=== PATIENT | male | born 1950 | race Caucasian/White ===

== ENCOUNTER 2018-05-28 09:36 | Outpatient (CLI) | payer MEDICARE, OTHER ==
[~2018-05-28] VITALS: Ht 177.8 cm; Wt 87.7 kg
--- NOTE | ~2018-05-28 | HEMODYNAMI ---
PATIENT:JUNIOR NEGRTEE MEDICAL RECORD: [id number] : 50 LOCATION:[facility] ADMISSION DATE: 05/28/18 Generatedon:05/28/201812:59 Patient name: JUNIOR NEGRETE Patient #: [id number] SSN: B: 1950 Date of study: 05/28/2018 Page: Of Hemodynamic Procedure Report Patient Data Patient Demographics Procedure consent was obtained First Name: JUNIOR Gender: Male Last Name: CADEN : 1950 Patient #: [id number] Age: 68 year(s) Race: Unknown Additional ID: [id number] Contact details Address: [facility] State: [place] City: [place] Zip code: [address] Past Medical History Allergies: No known allergies Admission Admission Data Admission Date: 05/28/2018 Admission Time: 9:36 Height (in.): 5.1 BSA: 0.31 (m2) Height (cm.): 12.95 BMI: 5243.96 (kg/m2) Weight (lbs.): 194 Weight (kg.): 88 Lab Results Lab Result Date: 05/28/2018 Lab Result Time: 0:00 Biochemistry Name Units Result Min Max BUN mg/dl 15 --(--*-)-- 7 18 Creatinine mg/dl 1.2 --(---*)-- 0.6 1.3 CBC Name Units Result Min Max Hemoglobin g/dl 15 --(-*--)-- 13.5 17.5 Procedure Procedure Types Cath Procedure Diagnostic Procedure LHC LH w/Coronaries PCI Procedure Coronary Stent Coronary Stent Initial Procedure Description Procedure Date Procedure Date: 05/28/2018 Procedure Start Time: 12:44 Procedure End Time: 12:55 Procedure Staff Name Function Anshul Mcbride MD Performing Physician Mendez Cisneros RT Monitor Shante Chamberlain RT Scrub Sofi Lawson RN Nurse Paulo Montalvo RT Flyer Maker Procedure Data Cath Procedure Fluoroscopy Diagnostic fluoroscopy Total fluoroscopy Time: 2.1 time: 2.1 min min Diagnostic fluoroscopy Total fluoroscopy dose: 246 dose: 246 mGy mGy Contrast Material Contrast Material Type Amount (ml) Isovue 300 49 Entry Location Entry Primary Successful Side Size Upsize Upsize Entry Closure Keys ccessful Closure Location (Fr) 1 (Fr) 2 (Fr) Remarks Device Remarks Radial Right 6 Fr Mechanical artery Short Compression Estimated blood loss: 10 ml Diagnostic catheters Device Type Used For End Catheter Placement DIAGNOSTIC [place] 110cm 5 Procedure Fr catheter ([id number]) Procedure Complications No complications Procedure Medications Medication Administration Route Dosage Oxygen etCO2 Nasal cannula 2 l/min Lidocaine 2% added to field 20 0.9% NaCl I.V. 100 ml/hr Heparin Flush Bag added to field 2 bags (1000units/500ml NS) Radial Cocktail I.A. 1 syringe (Verapomil 2mg/Nitro 400mcg/Heparin 1500units) Versed I.V. 1 mg Fentanyl I.V. 50 mcg Versed I.V. 1 mg Fentanyl I.V. 50 mcg Heparin Bolus I.V. 4000 units Versed I.V. 0.5 mg Hemodynamics Rest BSA: 0.31 (m2) HGB: 15 (g/dl) O2 Consumption: Estimated: 34.94 (ml/min) O2 Consu mption indexed: Estimated:112.71 (ml/min/m) Heart Rate: 61 (bpm) Pressure Samples Time Site Value (mmHg) Purpose Heart Use Rate(bpm) 12:46 LV 102/8,11 Snapshot 82 Snapshots Pre Cath Intra NCS Post Cath Vital Signs Time Heart Resp SPO2 etCO2 NIBP (mmHg) Rhythm Pain Sedation Rate (ipm) (%) (mmHg) Status Level (bpm) 12:22:01 62 25 97 0 158/80(119) NSR 0 (11) 10(A) , No pain 12:26:38 67 15 98 30.1 134/89(110) NSR 0 (11) 10(A) , No pain 12:31:20 66 15 97 32.3 132/80(102) NSR 0 (11) 10(A) , No pain 12:36:03 69 13 96 29.3 125/73(92) NSR 0 (11) 10(A) , No pain 12:40:43 67 13 96 34.6 121/76(95) NSR 0 (11) 10(A) , No pain 12:45:24 69 13 93 37.6 130/73(93) NSR 0 (11) 9(A) , No pain 12:49:58 77 13 95 28.6 108/77(99) NSR 0 (11) 9(A) , No pain 12:54:35 70 16 95 32.4 117/73(94) NSR 0 (11) 10(A) , No pain Medications Time Medication Route Dose Verified Delivered Reason Not es Effectiveness by by 12:25:04 Oxygen etCO2 2 l/min Anshul Buffie used for Nasal Reed Lawson RN procedure cannula 12:25:11 Lidocaine 2% added 20ml Anshulkerline Landers for local to vial Reed Mcbride MD anesthetic field 12:25:30 0.9% NaCl I.V. 100 Anshul Bufferiln Per physician ml/hr Reed Lawson RN 12:34:22 Heparin Flush added 2 bags Anshul Landers used for Bag to Reed Mcbride MD procedure (1000units/500ml field NS) 12:40:51 Versed I.V. 1 mg Anshul Morinie for sedation Reed Lawson RN 12:40:58 Fentanyl I.V. 50 mcg Anshul Farah for sedation Reed Lawson RN 12:45:17 Versed I.V. 1 mg Anshul Morinie for sedation Reed Lawson RN 12:45:21 Fentanyl I.V. 50 mcg Anshul Farah for sedation Reed Lawson RN 12:45:24 Radial Cocktail I.A. 1 Anshul Landers for (Verapomil syringe Reed Mcbride MD vasodilation 2mg/Nitro 400mcg/Heparin 1500units) 12:48:54 Heparin Bolus I.V. 4000 Anshul Buffie for kuldeep ified units Reed Lawson RN anticoagulation with dr mcbride 12:50:19 Versed I.V. 0.5 mg Anshul Farah for sedation Reed Lawson RN Procedure Log Time Note 12:07:35 Signed procedure consent form obtained from patient. 12:07:36 Time tracking: Regular hours (M-F 7:00 - 5:00) 12:07:39 Plan of Care:Hemodynamics will remain stable., Cardiac rhythm will remain stable., Comfort level will be maintained., Respiratory function will remain adequate., Patient/ family verbilizes understanding of procedure., Procedure tolerated without complication., Recovers from procedure without complications.. 12:07:53 Paulo Montalvo RT(R) sent for patient. Start room use. 12:07:59 H&P Date Dictated: 05/27/2018 Within 30 days and on chart., H&P Addendum completed by physician on day of procedure. (MUST COMPLETE FOR ALL OUTPATIENTS). 12:08:10 Patient allergic to No known allergies 12:10:08 Lab Result : BUN 15 mg/dl 12:10:08 Lab Result : Hemoglobin 15 g/dl 12:10:08 Lab Result : Creatinine 1.2 mg/dl 12:10:50 Patient Weight : 194 lbs 12:10:55 Patient Height : 5.1 inches 12:16:02 Patient received from Pre/Post Procedure Room to CCL 1 Alert and oriented. Tansferred to table in Supine position. 12:16:03 Warm blankets applied, and antony hugger turned on for patient comfort. 12:16:03 Correct patient and procedure confirmed by team. 12:16:04 ECG and BP/O2 sat monitors applied to patient. 12:16:05 Pre-procedure instructions explained to patient. 12:16:05 Pre-op teaching completed and patient verbalized understanding. 12:16:07 Family in waiting room. 12:16:09 Patient NPO since Midnight. 12:20:55 Vital chart was started 12:21:18 Rhythm: sinus rhythm 12:21:21 Full Disclosure recording started 12:21:26 Is the patient allergic to Iodine/contrast media? No. 12:21:27 Is patient on blood thinner?Yes 12:21:30 ACC The patient was administered the following blood thiners within the last 24 hours: ACCPlavix 12:21:32 Patient diabetic? No. 12:21:35 Previous problem with sedation/anesthesia? No ? 12:21:36 Snore? Yes 12:21:37 Sleep apnea? No 12:21:37 Deviated septum? No 12:21:42 Opens mouth fully? Yes 12:21:44 Sticks out tongue? Yes 12:21:46 Airway obstruction? No ? 12:21:47 Dentures? No ? 12:21:53 Pre procedure: right dorsailis pedis pulse 1+ Palpable, but thready & weak; easily obliterated 12:22:18 Modified Matheus's test Ulnar < 7 seconds 12:22:21 Patient pain scale 0/10 ?. 12:22:42 IV patent on arrival in left forearm with 0.9% NaCl at [facility]. 12:23:08 Lab results completed and on chart. 12:23:13 Right Radial & Right Groin area was prepped with chlora-prep and draped in sterile fashion 12:: Alarms reviewed by R. N. 12:: Sharps counted by scrub and verified by R.N. 12::33 Baseline sample Acquired. 12:25:04 Oxygen 2 l/min etCO2 Nasal cannula was administered by Sofi Lawson RN; used for procedure; 12:25:11 Lidocaine 2% 20ml vial added to field was administered by Anshul Mcbride MD; for local anesthetic; 12:25:30 0.9% NaCl 100 ml/hr I.V. was administered by Sofi Lawson RN; Per physician; 12:29:27 Use device set Radial Dx or PCI 12:29:29 ACIST Syringe (92496) opened to sterile field. 12:29:29 Medline Cath Pack ([id number]) opened to sterile field. 12:29:29 Bag Decanter (2002S) opened to sterile field. 12:29:30 ACIST Hand Control (46918) opened to sterile field. 12:29:31 ACIST Manifold (72226) opened to sterile field. 12:29:31 Tegaderm 4 x 4 (1626W) opened to sterile field. 12:29:32 MBrace Wrist Support ([id number]) opened to sterile field. 12:29:33 SHEATH 6Fr Prelude Radial ([id number]) opened to sterile field. 12:29:34 DIAGNOSTIC WIRE .035 260cm J wire (073731) opened to sterile field. 12:33:08 Physician paged 12:34:22 Heparin Flush Bag (1000units/500ml NS) 2 bags added to field was administered by Anshul Mcbride MD; used for procedure; 12:35:12 Zero performed for pressure channel P1 12:39:13 Physician arrived 12:39:13 --------ALL STOP TIME OUT------ 12:39:14 Final Timeout: patient, procedure, and site verified with staff and physician. All members of the team are in agreement. 12:39:17 Right Radial & Right Groin site verified by team. 12:39:19 Physical assessment completed. ASA score P 2 - A patient with mild systemic disease as per Anshul Mcbride MD. 12:39:22 Sedation plan: IV Moderate Sedation Medication:Versed, Fentanyl 12:40:51 Versed 1 mg I.V. was administered by Sofi Lawson RN; for sedation; 12::58 Fentanyl 50 mcg I.V. was administered by Sofi Lawson RN; for sedation; 12:43:58 Procedure started. 12:44:38 Local anesthetic to right radial artery with Lidocaine 2% by Anshul Mcbride MD.INITIAL ACCESS ONLY 12:44:48 A 6 Fr Short sheath was inserted into the Right Radial artery 12:45:17 Versed 1 mg I.V. was administered by Sofi Lawson RN; for sedation; 12:45:21 Fentanyl 50 mcg I.V. was administered by Sofi Lawson RN; for sedation; 12:45:22 A DIAGNOSTIC [place] 110cm 5 Fr catheter ([id number]) was advanced over the wire and used for Procedure. 12:45:24 Radial Cocktail (Verapomil 2mg/Nitro 400mcg/Heparin 1500units) 1 syringe I.A. was administered by Anshul Mcbride MD; for vasodilation; 12:46:13 LV gram done using MCKEON 12:46:16 Injector settings: Ml/sec: 5, Volume: 15, 12:46:22 EF : 55 % 12:46:36 LCA angiography performed. 12:47:16 RCA angiography performed. 12:47:21 Catheter removed. 12:48:31 CHOICE PT Extra Support 182cm wire ([id number]) opened to sterile field. 12:48:32 INFLATOR Merit BasixCompak (CZ7661) opened to sterile field. 12:48:32 GUIDE 6FR HS I SH catheter ([id number]) opened to sterile field. 12:48:54 Heparin Bolus 4000 units I.V. was administered by Sofi Lawson RN; for anticoagulation; verified with dr mcbride 12:48:55 6 Fr HSI SH guide catheter was inserted over the wire 12:49:25 CHOICE PT ES wire advanced. 12:49:26 Wire advanced across lesion. 12:50:19 Versed 0.5 mg I.V. was administered by Sofi Lawson RN; for sedation; 12:50:55 Place stent Inflation Number: 1 A CHUCKY RX 3.0 x 22 stent ([id number]) was prepped and advanced across the Mid RCA. The stent was deployed at 15 LEXI for 0:10 (min:sec). 12:51:09 Stent catheter was removed intact over wire. 12:51:10 Wire removed. 12:52:12 TR BAND Standard ([id number]) opened to sterile field. 12:52:18 Guide catheter removed. 12:52:26 Sheath removed intact; hemostasis achieved with Mechanical Compression to the Right Radial artery. 12:52:28 Procedure ended.(Physican Out) 12:53:50 Fluoroscopy time 02.10 minutes. 12:53:54 Fluoroscopy dose: 246 mGy 12:53:54 Flurop Dose total: 246 12:53:58 Contrast amount:Isovue 300 49ml. 12:53:59 Sharps counted by scrub and verified by R.N. 12:54:01 TR band inflated with 11cc of air. 12:54:02 Insertion/operative site no bleeding no hematoma. 12:54:06 Post right radial artery:stable, soft, clean and dry 12:54:07 Post Procedure Pulses reassessed and unchanged 12:54:09 Post-procedure physical assessment completed. ASA score P 2 - A patient with mild systemic disease as per Anshul Mcbride MD. 12:54:11 Post procedure rhythm: unchanged. 12:54:24 Estimated blood loss: 10 ml 12:54:31 Post procedure instruction explained to patient.Patient verbalizes understanding. 12:54:31 Patient needs reinforcement of post procedure teaching. 12:54:51 Procedure type changed to Cath procedure, Diagnostic procedure, LHC, LHC w/Coronaries, PCI procedure, Coronary Stent, Coronary Stent Initial 12:55:18 Procedure and supply charges have been captured, reviewed, submitted and are correct. 12:55:20 Procedure Complication : No complications 12:55:21 Vital chart was stopped 12:55:22 See physician's report for complete and final results. 12:55:24 Report given to Pre/Post Procedure Room. 12:55:28 Patient transfered to Pre/Post Procedure Room with Stretcher. 12:55:30 Procedure ended. 12:55:30 Full Disclosure recording stopped 12:56:01 End room use (Document Last) Intervention Summary Intervention Notes Time ActionType Lesion and Equipment Used Action# Pressure Duration Attributes 12:50:55 Place stent Mid RCA CHUCKY RX 3.0 x 1 15 00:10 22 stent ([id number]) Device Usage Item Name Manufacture Quantity Catalog Number Hospital Part Current Minimal Lot# / Charge Number Stock Stock Serial# Code ACIST Syringe Acist 1 32590 732329 530120 407237 20 (89077) Medical Systems Inc Medline Cath Cardinal 1 [id number] 079988 49640 718866 5 Pack Health ([id number]) Bag Decanter Microtek 1 2001S 287301 90206 849939 5 (2001S) Medical Inc. ACIST Hand Acist 1 40521 632417 583424 539504 5 Control (43745) Medical Systems Inc ACIST Manifold Acist 1 00466 762410 134713 968474 5 (73697) Medical Systems Inc Tegaderm 4 x 4 3M 1 1626W 812811 070700 318153 5 (1626W) MBrace Wrist Advanced 1 140-0250-00 237179 45672 393970 5 Support Vascular ([id number]) Dynamics SHEATH 6Fr Merit 1 [id number] 256989 090227 146355 5 Prelude Radial Medical ([id number]) DIAGNOSTIC WIRE St Gian 1 975140 714686 100874 802752 30 .035 260cm J wire (411148) DIAGNOSTIC Terumo 1 40-9248 942379 105252 143510 5 [place] 110cm 5 Fr catheter (209625) CHOICE PT Extra [place] 1 [id number] 878293 274175 137876 5 Support 182cm Scientific wire ([id number]) INFLATOR Merit Merit 1 DQ3434 961552 450493 306999 15 WebPesadosndNetpulse Medical (EU8725) GUIDE 6FR HS I Medtronic 1 [id number] 129023 04761 747410 1 SH catheter ([id number]) CHUCKY RX 3.0 x Medtronic 1 [id number] 204174 0831039 069098 5 [id number] 22 stent ([id number]) TR BAND Terumo 1 [id number] 865074 635965 845441 40 Standard ([id number]) Signature Audit [place] Stage Time Signature Unsigned Intra-Procedure 05/28/2018 Mendez Cisneros 12:59:03 PM RT(R) Signatures Monitor : Mendez Cisneros RT Signature : Date : Time : [address] [address]
--- NOTE | ~2018-05-28 | OP ---
PATIENT NAME: JUNIOR NEGRETE MEDICAL RECORD: [id number] :50 LOCATION:D.CAT ADMISSION DATE: SURGEON: STAN REGAN MD DATE OF OPERATION: 05/28/2018 PROCEDURES: 1. PTCA stent RCA. 2. Left heart catheterization. 3. Selective coronary angiography. 4. Left ventriculogram. INDICATION: Unstable angina and coronary artery disease. PROCEDURE IN DETAIL: After informed consent was obtained and after a detailed description of the risks, benefits as well as alternative therapies, the patient elected to proceed with angiogram and angioplasty. The right radial area was prepped and draped in normal sterile fashion. Right radial artery was cannulated via modified Seldinger technique with placement of 6-Bel[place]ian sheath. All catheters exchanged through this sheath. FINDINGS: The left ventriculogram was performed in standard 30-degree MCKEON view, reveals good cardiac wall motion throughout all segments. Overall ejection fraction estimated 60%. SELECTIVE CORONARY ANGIOGRAPHY: 1. Left main showed no significant angiographic disease. 2. Left anterior descending has 70% stenosis in the mid vessel. The diagonal has 90+ percent stenosis. 3. The left circumflex has moderate irregularities, but no flow-limiting stenosis. 4. Right coronary artery has 90% stenosis throughout the mid vessel. PTCA STENT OF THE RCA: The stent used 3.0 x 22 mm Burden. Result was 0% residual stenosis. OVERALL IMPRESSION: Successful percutaneous transluminal coronary angioplasty stent of the right coronary artery going from 90% initial stenosis to 0% residual. PLAN: For GROUP LEADER stent of the LAD and diagonal in the near future. TRANSINT:[id number] Voice Confirmation ID: [id number] DOCUMENT ID: [id number] STAN REGAN MD at 1834 CC: [id number] DICTATION DATE: 05/28/18 1255 SOLE ROUNDING MACHINE OPERATOR: 05/28/18 1333 DEP CLI 05/28/18 [place] [id number]
[2018-05-28] MEDS ORDERED: PRAVACHOL80 MG PO (10:31)
[2018-05-28] MEDS ORDERED: UROXATRAL10 MG PO (10:31)
[2018-05-28] MEDS ORDERED: MOBIC7.5 MG PO (10:31)
[2018-05-28] MEDS ORDERED: FISH OIL 1,2001 CAP PO (10:32)
[2018-05-28] MEDS ORDERED: CO Q-10200 MG PO (10:32)
[2018-05-28] MEDS ORDERED: VITAMIN B COMPL1 TAB PO (10:32)
[2018-05-28] MEDS ORDERED: VITAMIN C1000 MG PO (10:33)
[2018-05-28 10:58] VITALS: BP 152/76; Ht 177.8 cm; Wt 87.7 kg
[2018-05-28 11:17] LABS: BASOPHILS 0.4 % (0-2); EOSINOPHILS 1.5 % (0-7); HEMATOCRIT 42.3 % (42.0-54.0); IMMATURE GRANULOCYTES 0.2 % (0-5); LYMPHOCYTES 21.8 % (15-50); MCH 33.6 pg (26.0-34.0); MCHC 35.5 g/dL (31.0-37.0); MCV 94.8 fL (80.0-100.0); MEAN PLATELET VOLUME 11.1 fL (7.4-10.4); NEUTROPHILS 69.1 % (40-80); PLATELET COUNT 148 10x3/uL (130-400); RBC 4.46 10x6/uL (4.20-6.10); WBC 9.8 10x3/uL (4.8-10.8)
[2018-05-28 11:53] LABS: ANION GAP 10.8 mmol/L (8-16); CALCIUM 9.8 mg/dL (8.5-10.1); CARBON DIOXIDE 27.4 mmol/L (21.0-32.0); CREATININE - SERUM 1.2 mg/dL (0.6-1.3); POTASSIUM - SERUM 4.2 mmol/L (3.5-5.1)
[2018-05-28] MEDS ORDERED: BAYER CHEWABLE81 MG PO (13:58)
[2018-05-28] MEDS ORDERED: PLAVIX75 MG PO (13:58)
== END 2018-05-28 17:10 | disposition home or self-care (01) ==
LOC: D.CATH 09:36
PROVIDERS: Internal Medicine Interventional Cardiology
DX: I25.110 Atherosclerotic heart disease of native coronary artery with unstable angina pectoris (principal)
CPT/HCPCS: 93458; C9600

== ENCOUNTER 2018-05-31 08:00 | Outpatient (CLI) | payer MEDICARE, OTHER ==
[~2018-05-31] VITALS: Ht 177.8 cm; Wt 86.4 kg
--- NOTE | ~2018-05-31 | HP ---
PATIENT: JUNIOR ALVAREZ MEDICAL RECORD: [id number] ACCOUNT: [id number] LOCATION:HANS : 50 ADMISSION DATE: 05/31/18 HISTORY AND PHYSICAL EXAMINATION ADMITTING DIAGNOSES: 1. Angina. 2. Coronary artery disease. 3. Recent PTCA and stent of RCA with concomitant disease of LAD. 4. Hypertension. 5. Hyperlipidemia. HISTORY OF PRESENT ILLNESS: Mr. Alvarez presents with unstable anginal symptomatology, found to have significant disease of the RCA and LAD. Underwent successful PTCA and stent of the RCA. He is now brought back for PTCA and stent of the LAD in a staged fashion. PHYSICAL EXAMINATION: GENERAL APPEARANCE: Well-nourished, well-developed, appears stated age. Level of distress, comfortable. PSYCHIATRIC: Mental status, alert, normal affect. Orientation, oriented to time, place and person. EYES: Lids and conjunctiva, noninjected. No discharge, no pallor. ENT: Lips, teeth, gums, normal dentition. Oropharynx, no cyanosis, no pallor. NECK: Carotid arteries, bilateral normal upstroke, no bruits, no thrills. JUGULAR VEINS: No jugular venous pressure or distention. CERVICAL LYMPH NODES: Nontender, nonenlarged. THYROID: Not enlarged. Nontender. No nodules. LUNGS: Respiratory effort, unlabored. CHEST: Normal curvature. No thoracic deformity. No chest wall tenderness. Percussion, resonant. Auscultation, clear. No wheezes, no rales, no rhonchi. CARDIOVASCULAR: Precordial exam, nondisplaced. No heaves or pericardial thrills. Rate and rhythm, regular. Heart sounds, normal S1, normal S2. No S3, no gallop, no rub. Systolic murmur, not heard. Diastolic murmur, not heard. EXTREMITIES: No cyanosis, no edema. Peripheral pulses, full and equal in all extremities, except as noted. No bruits appreciated. ABDOMEN: Soft, nondistended. Normal aorta. No bruit. Nontender. No masses. Liver, nontender, no hepatomegaly. Spleen, nontender, no splenomegaly. MUSCULOSKELETAL: No joint tenderness. No joint swelling. No erythema. NEUROLOGICAL: Normal gait, normal strength, normal tone. SKIN: Warm and dry. REVIEW OF SYSTEMS: The patient reports easy bruising but reports no swollen glands. The patient reports no fever, no night sweats, no significant weight gain, no significant weight loss. No significant exercise tolerance. The patient reports no dry eyes, no irritation, no vision change. Patient reports no difficulty hearing and no ear pain. Patient reports no frequent nose bleeds or nose and sinus problems. Patient reports on arm pain on exertion. No shortness of breath while lying down. No history of heart murmur. Patient reports no cough, no wheezing or coughing up blood. Patient reports no abdominal pain, no vomiting. Normal appetite. No diarrhea and not vomiting blood. No nausea and no constipation. Patient reports no incontinence. No difficulty urinating. No hematuria. No increased frequency. Patient reports no muscle aches. No weakness, no arthralgias, no back pain. No swelling of the extremities. Patient reports no abnormal mole, no jaundice, no rashes. Reports HISTORY AND PHYSICAL [id number] CADEN,JUNIOR no loss of consciousness. No weakness and no numbness. No seizures, dizziness, or headaches. The patient reports no depression, no sleep disturbance, feeling safe in a relationship and no alcohol abuse. Patient reports on fatigue. Reports no runny nose or sinus pressure. No itching, no hives, and no frequent sneezing. OVERALL IMPRESSION: Anginal symptomatology with significant disease of the LAD. We will proceed with transcatheter revascularization of the LAD territory. TRANSINT:[id number] Voice Confirmation ID: [id number] DOCUMENT ID: [id number] STAN REGAN MD at 1642 CC: [id number] DICTATION DATE: 05/30/1836 DAIRY FARM WORKER: 05/30/18 0954 DEP CLI 05/31/18 [facility] [address] [place] [address]
--- NOTE | ~2018-05-31 | HEMODYNAMI ---
PATIENT:JUNIOR NEGRETE MEDICAL RECORD: [id number] : 50 LOCATION:D.CAT ADMISSION DATE: 05/31/18 Generatedon:05/31/201810:46 Patient name: JUNIOR NEGRETE Patient #: [id number] SSN: DO B: 1950 Date of study: 05/31/2018 Page: Of Hemodynamic Procedure Report Patient Data Patient Demographics Procedure consent was obtained First Name: JUNIOR Gender: Male Last Name: CADEN : 1950 Patient #: [id number] Age: 68 year(s) Race: Unknown Additional ID: [id number] Contact details [facility]: [facility] State: [place] City: [place] Zip code: [address] Past Medical History Allergies: No known allergies Admission Admission Data Admission Date: 05/31/2018 Admission Time: 10:00 Admit Source: Other Lab Results Lab Result Date: 05/31/2018 Lab Result Time: 8:28 Biochemistry Name Units Result Min Max BUN mg/dl 15 --(--*-)-- 7 18 Creatinine mg/dl 1.3 --(---*)-- 0.6 1.3 CBC Name Units Result Min Max Hematocrit % 41.8 -*(----)-- 42 54 Hemoglobin g/dl 14.9 --(-*--)-- 13.5 17.5 Procedure Procedure Types Cath Procedure Diagnostic Procedure Sedation Charges Moderate Sedation up to 15 minutes PCI Procedure Coronary Stent Coronary Stent Initial Coronary Stent Additional Procedure Description Procedure Date Procedure Date: 05/31/2018 Procedure Start Time: 10:25 Procedure End Time: 10:45 Procedure Staff Name Function Anshul Mcbride MD Performing Physician Mendez Cisneros RT Monitor Sofi Lawson RN Nurse Azucena Hopkins RT Scrub Procedure Data Cath Procedure Fluoroscopy Diagnostic fluoroscopy Total fluoroscopy Time: 6.5 time: 6.5 min min Diagnostic fluoroscopy Total fluoroscopy dose: 570 dose: 570 mGy mGy Contrast Material Contrast Material Type Amount (ml) Isovue 300 75 Entry Location Entry Primary Successful Side Size Upsize Upsize Entry Closure Keys ccessful Closure Location (Fr) 1 (Fr) 2 (Fr) Remarks Device Remarks Radial Right 6 Fr Mechanical artery Short Compression Estimated blood loss: 10 ml Procedure Complications No complications Procedure Medications Medication Administration Route Dosage Oxygen etCO2 Nasal cannula 2 l/min Lidocaine 2% added to field 20 Heparin Flush Bag added to field 2 bags (1000units/500ml NS) 0.9% NaCl I.V. 100 ml/hr Radial Cocktail I.A. 1 syringe (Verapomil 2mg/Nitro 400mcg/Heparin 1500units) Versed I.V. 1 mg Fentanyl I.V. 50 mcg Versed I.V. 1 mg Fentanyl I.V. 50 mcg Heparin Bolus I.V. 4000 units Versed I.V. 1 mg Fentanyl I.V. 50 mcg Hemodynamics Rest HGB: 14.9 (g/dl) Heart Rate: 74 (bpm) Snapshots Pre Cath Intra NCS Post Cath Vital Signs Time Heart Resp SPO2 etCO2 NIBP (mmHg) Rhythm Pain Sedation Rate (ipm) (%) (mmHg) Status Level (bpm) 9:46:37 68 25 98 0 155/83(100) NSR 0 (11) 10(A) , No pain 9:50:56 75 19 98 0 140/85(112) NSR 0 (11) 10(A) , No pain 9:55:10 79 15 97 31.3 132/81(97) NSR 0 (11) 10(A) , No pain 9:59:25 74 13 99 26.9 117/66(89) NSR 0 (11) 10(A) , No pain 10:03:35 79 13 98 0 113/67(90) NSR 0 (11) 10(A) , No pain 10:08:45 75 14 97 32.1 110/63(87) NSR 0 (11) 10(A) , No pain 10:12:50 74 11 98 32.8 119/72(99) NSR 0 (11) 10(A) , No pain 10:17:03 75 11 98 0 113/63(98) NSR 0 (11) 10(A) , No pain 10:21:08 67 11 98 35.8 113/72(95) NSR 0 (11) 10(A) , No pain 10:25:14 73 10 98 3.7 118/75(103) NSR 0 (11) 9(A) , No pain 10:29:24 94 14 96 23.1 98/63(79) NSR 0 (11) 9(A) , No pain 10:33:25 83 21 97 37.3 106/72(86) NSR 0 (11) 9(A) , No pain 10:37:29 84 17 98 26.1 108/71(86) NSR 0 (11) 9(A) , No pain 10:41:35 81 22 99 32.1 104/69(95) NSR 0 (11) 10(A) , No pain 10:45:35 78 10 99 28.4 122/81(103) NSR 0 (11) 10(A) , No pain Medications Time Medication Route Dose Verified Delivered Reason Not es Effectiveness by by 9:45:34 Oxygen etCO2 2 l/min Anshul Farah used for Nasal Reed Lawson RN procedure cannula 9:45:40 Lidocaine 2% added 20ml Anshul Landers for local to vial Reed Mcbride MD anesthetic field 9:45:46 Heparin Flush added 2 bags Anshul Landers used for Bag to Reed Mcbride MD procedure (1000units/500ml field NS) 9:45:58 0.9% NaCl I.V. 100 Anshul Buffie Per physician ml/hr Reed Lawson RN 10:23:55 Versed I.V. 1 mg Anshul Morinie for sedation Reed Lawson RN 10:23:58 Fentanyl I.V. 50 mcg Anshul Morinie for sedation Reed Lawson RN 10:25:06 Radial Cocktail I.A. 1 Anshul Anshul for (Verapomil syringe eRed Mcbride MD vasodilation 2mg/Nitro 400mcg/Heparin 1500units) 10:25:26 Versed I.V. 1 mg Anshul Buffie for sedation Reed Lawson RN 10:25:29 Fentanyl I.V. 50 mcg Anshul Buffie for sedation Reed Lawson RN 10:26:33 Heparin Bolus I.V. 4000 Anshul Buffie for JACOB IFIED units Reed Lawson RN anticoagulation WITH DR MCBRIDE 10:31:51 Versed I.V. 1 mg Anshul Buffie for sedation Reed Lawson RN 10:31:55 Fentanyl I.V. 50 mcg Anshul Farah for sedation Rede Lawson RN Procedure Log Time Note 9:32:58 Admit Source: Other 9:32:59 Diagnostic Cath status Elective 9:33:01 Sofi Lawson RN sent for patient. Start room use. 9:39:41 Time tracking: Regular hours (M-F 7:00 - 5:00) 9:39:44 Plan of Care:Hemodynamics will remain stable., Cardiac rhythm will remain stable., Comfort level will be maintained., Respiratory function will remain adequate., Patient/ family verbilizes understanding of procedure., Procedure tolerated without complication., Recovers from procedure without complications.. 9:39:48 Patient received from Pre/Post Procedure Room to CCL 2 Alert and oriented. Tansferred to table in Supine position. 9:39:49 Warm blankets applied, and antony hugger turned on for patient comfort. 9:39:50 Correct patient and procedure confirmed by team. 9:39:51 Signed procedure consent form obtained from patient. 9:39:52 ECG and BP/O2 sat monitors applied to patient. 9:39:57 H&P Date Dictated: 05/31/2018 Within 30 days and on chart., H&P Addendum completed by physician on day of procedure. (MUST COMPLETE FOR ALL OUTPATIENTS). 9:45:24 Vital chart was started 9:45:34 Oxygen 2 l/min etCO2 Nasal cannula was administered by Sofi Lawson RN; used for procedure; 9:45:40 Lidocaine 2% 20ml vial added to field was administered by Anshul Mcbride MD; for local anesthetic; 9:45:46 Heparin Flush Bag (1000units/500ml NS) 2 bags added to field was administered by Anshul Mcbride MD; used for procedure; 9:45:58 0.9% NaCl 100 ml/hr I.V. was administered by Sofi Lawson RN; Per physician; 9:46:04 Full Disclosure recording started 9:57:57 Baseline sample Acquired. 9:58:00 Rhythm: sinus rhythm 9:58:04 Pre-procedure instructions explained to patient. 9:58:04 Pre-op teaching completed and patient verbalized understanding. 9:58:05 Family in waiting room. 9:58:06 Patient NPO since Midnight. 9:58:14 Patient allergic to No known allergies 9:58:16 Is the patient allergic to Iodine/contrast media? No. 9:58:17 Is patient on blood thinner?Yes 9:58:20 ACC The patient was administered the following blood thiners within the last 24 hours: ACCPlavix 9:58:22 Patient diabetic? No. 9:58:24 Previous problem with sedation/anesthesia? No ? 9:58:26 Snore? Yes 9:58:27 Sleep apnea? No 9:58:28 Deviated septum? No 9:58:29 Opens mouth fully? Yes 9:58:29 Sticks out tongue? Yes 9:58:31 Airway obstruction? No ? 9:58:33 Dentures? No ? 9:58:35 Modified Matheus's test Ulnar < 7 seconds 9:58:37 Patient pain scale 0/10 ?. 9:58:42 IV patent on arrival in left wrist with 0.9% NaCl at O. 9:59:10 Lab Result : BUN 15 mg/dl 9:59:10 Lab Result : Creatinine 1.3 mg/dl 9:59:11 Lab Result : Hemoglobin 14.9 g/dl 9:59:11 Lab Result : Hematocrit 41.8 % 9:59:13 Lab results completed and on chart. 9:59:16 Right Radial & Right Groin area was prepped with chlora-prep and draped in sterile fashion 9:59:17 Alarms reviewed by R. N. 9:59:17 Sharps counted by scrub and verified by R.N. 9:59:20 Use device set Radial Dx or PCI 9:59:21 ACIST Syringe (17664) opened to sterile field. 9:59:22 Medline Cath Pack ([id number]) opened to sterile field. 9:59:22 Bag Decanter () opened to sterile field. 9:59:24 Tegaderm 4 x 4 (1626W) opened to sterile field. 9:59:24 ACIST Manifold (01961) opened to sterile field. 9:59:25 ACIST Hand Control (36026) opened to sterile field. 9:59:26 MBrace Wrist Support ([id number]) opened to sterile field. 9:59:27 SHEATH 6Fr Prelude Radial ([id number]) opened to sterile field. 9:59:29 DIAGNOSTIC WIRE .035 260cm J wire (796724) opened to sterile field. 10:00:08 CHOICE PT Extra Support 182cm wire ([id number]) opened to sterile field. 10:00:09 INFLATOR Jamil Baires ([id number]) opened to sterile field. 10:00:29 Zero performed for pressure channel P1 10:00:32 Zero performed for pressure channel P1 10:00:34 Zero performed for pressure channel P1 10:: Physician arrived :: --------ALL STOP TIME OUT------ 10::54 Final Timeout: patient, procedure, and site verified with staff and physician. All members of the team are in agreement. 10::55 Right Radial & Right Groin site verified by team. 10:23:00 Sedation plan: IV Moderate Sedation Medication:Versed, Fentanyl 10::55 Versed 1 mg I.V. was administered by Sofi Lawson RN; for sedation; 10::58 Fentanyl 50 mcg I.V. was administered by Sofi Lawson RN; for sedation; 10:25:05 Procedure started. 10:25:06 Radial Cocktail (Verapomil 2mg/Nitro 400mcg/Heparin 1500units) 1 syringe I.A. was administered by Anshul Mcbride MD; for vasodilation; 10:25:08 Local anesthetic to right radial artery with Lidocaine 2% by Anshul Mcbride MD.INITIAL ACCESS ONLY 10:25:15 A 6 Fr Short sheath was inserted into the Right Radial artery 10:25:26 Versed 1 mg I.V. was administered by Sofi Lawson RN; for sedation; 10:25:29 Fentanyl 50 mcg I.V. was administered by Sofi Lawson RN; for sedation; 10:26:06 CHOICE PT Extra Support 182cm wire ([id number]) opened to sterile field. 10:26:10 GUIDE 6FR XBLAD 3.5 catheter ([id number]) opened to sterile field. 10:26:18 6 Fr xblad 3.5 guide catheter was inserted over the wire 10:26:33 Heparin Bolus 4000 units I.V. was administered by Sofi Lawson RN; for anticoagulation; VERIFIED WITH DR MCBRIDE 10:27:14 choice pt es wire advanced. 10:27:37 Wire advanced across lesion. 10:28:11 2nd choice pt es wire advanced to Diag 10:28:13 Wire advanced across lesion. 10:30:00 Place stent Inflation Number: 1 A CHUCKY RX 2.5 x 08 stent ([id number]) was prepped and advanced across the 1st Diag. The stent was deployed at 11 LEXI for 0:10 (min:sec). 10:30:09 Stent catheter was removed intact over wire. 10:30:10 Wire removed. 10:31:51 Versed 1 mg I.V. was administered by Sofi Lawson RN; for sedation; 10:31:55 Fentanyl 50 mcg I.V. was administered by Sofi Lawson RN; for sedation; 10:33:43 Inflate balloon Inflation number: 1 A EUPHORA 2.5 x 15 Balloon ([id number]) was prepped and advanced across the Mid LAD, then inflated to 15 LEXI for 0:10 (min:sec). 10:34:09 Balloon removed over the wire. 10:36:26 Place stent Inflation Number: 2 A CHUCKY RX 2.75 x 18 stent ([id number]) was prepped and advanced across the Mid LAD. The stent was deployed at 17 LEXI for 0:10 (min:sec). 10:37:12 Stent catheter was removed intact over wire. 10:37:16 Wire removed. 10:37:21 choice pt es wire advanced. 10:39:56 Wire removed. 10:40:10 Guide catheter removed. 10:40:22 TR BAND Standard ([id number]) opened to sterile field. 10:40:31 Sheath removed intact; hemostasis achieved with Mechanical Compression to the Right Radial artery. 10:40:33 Procedure ended.(Physican Out) 10:42:30 Fluoroscopy time 06.50 minutes. 10:42:34 Flurop Dose total: 570 10:42:34 Fluoroscopy dose: 570 mGy 10:42:39 Contrast amount:Isovue 300 75ml. 10:42:40 Sharps counted by scrub and verified by R.N. 10:42:42 TR band inflated with 12cc of air. 10:42:43 Insertion/operative site no bleeding no hematoma. 10:43:32 Post right radial artery:stable, soft, clean and dry 10:43:36 Post Procedure Pulses reassessed and unchanged 10:43:41 Post-procedure physical assessment completed. ASA score P 2 - A patient with mild systemic disease as per Anshul Mcbride MD. 10:43:44 Post procedure rhythm: unchanged. 10:43:47 Estimated blood loss: 10 ml 10:43:48 Post procedure instruction explained to patient.Patient verbalizes understanding. 10:43:48 Patient needs reinforcement of post procedure teaching. 10:43:57 Procedure type changed to Cath procedure, Diagnostic procedure, Sedation Charges, Moderate Sedation up to 15 minutes, PCI procedure, Coronary Stent, Coronary Stent Initial, Coronary Stent Additional 10:45:38 Procedure and supply charges have been captured, reviewed, submitted and are correct. 10:45:40 Procedure Complication : No complications 10:45:42 Vital chart was stopped 10:45:42 See physician's report for complete and final results. 10:45:44 Report given to Pre/Post Procedure Room. 10:45:46 Patient transfered to Pre/Post Procedure Room with Stretcher. 10:45:47 Procedure ended. 10:45:47 Full Disclosure recording stopped 10:45:51 End room use (Document Last) Intervention Summary Intervention Notes Time ActionType Lesion and Equipment Used Action# Pressure Duration Attributes 10:30:00 Place stent 1st Diag CHUCKY RX 2.5 x 1 11 00:10 08 stent ([id number]) 10:33:43 Inflate Mid LAD EUPHORA 2.5 x 1 15 00:10 balloon 15 Balloon ([id number]) 10:36:26 Place stent Mid LAD CHUCKY RX 2.75 x 2 17 00:10 18 stent ([id number]) Device Usage Item Name Manufacture Quantity Catalog Number Hospital Part Current Minimal Lot# / Charge Number Stock Stock Serial# Code ACIST Syringe Acist 1 78616 484895 285496 130036 20 (43352) Medical Systems Inc Medline Cath Cardinal 1 [id number] 136103 84025 112923 5 Pack Health ([id number]) Bag Decanter Microtek 1 217119 38119 538234 5 () Medical Inc. Tegaderm 4 x 4 3M 1 1626W 967807 040546 180087 5 (1626W) ACIST Manifold Acist 1 28572 167112 167179 737712 5 (55077) [employer] Systems Inc ACIST Hand Acist 1 60339 496201 161216 681224 5 Control (09552) Medical Systems Inc MBrace Wrist Advanced 1 140-0250-00 245136 77972 793576 5 Support Vascular ([id number]) Dynamics SHEATH 6Fr Merit 1 [id number] 525196 698649 609148 5 Prelude Radial Medical ([id number]) DIAGNOSTIC WIRE St Gian 1 242746 661669 078279 576340 30 .035 260cm J wire (416351) CHOICE PT Extra [place] 2 [id number] 467120 110954 448665 5 Support 182cm Scientific wire ([id number]) INFLATOR Merit Merit 1 AH5899 422472 905169 782872 15 Appevo Studio ([id number]) GUIDE 6FR XBLAD Cardinal 1 [id number] 403772 149319 143659 10 3.5 catheter Health ([id number]) CHUCKY RX 2.5 x Medtronic 1 [id number] 729915 4504974 270666 5 [id number] 08 stent ([id number]) EUPHORA 2.5 x Medtronic 1 [id number] 196670 345016 889386 5 [id number] 15 Balloon ([id number]) CHUCKY RX 2.75 x Medtronic 1 [id number] 528072 1394447 211606 5 [id number] 18 stent ([id number]) TR BAND Terumo 1 [id number] 995402 447166 352098 40 Standard ([id number]) Signature Audit [place] Stage Time Signature Unsigned Intra-Procedure 05/31/2018 Mendez Cisneros 10:46:19 AM RT(R) Signatures Monitor : Mendez Cisneros RT Signature : Date : Time : [facility] [address] [place] [address]
--- NOTE | ~2018-05-31 | OP ---
PATIENT NAME: JUNIOR NEGRETE MEDICAL RECORD: [id number] :50 LOCATION:D.CAT ADMISSION DATE: SURGEON: STAN REGAN MD DATE OF OPERATION: 05/31/2018 PROCEDURES: 1. PTCA stent LAD. 2. PTCA stent LAD diagonal. 3. Selective coronary angiography. INDICATION: Angina and coronary artery disease. PROCEDURE PERFORMED: After informed consent was obtained and after a detailed description of risks, benefits as well as alternative therapies, the patient elected to proceed with angiogram and angioplasty. The right radial area was prepped and draped in normal sterile fashion. Right radial artery was cannulated via modified Seldinger technique with placement of 6-Anguillan sheath. All catheters exchanged through this sheath. FINDINGS: The diagonal was 90% stenosed, the LAD 70% stenosed. The diagonal was addressed with a 2.5 x 8. The LAD with a 2.75 x 18, both Kevin stents. Result was 0% residual stenosis. OVERALL IMPRESSION: Successful PTCA stent of the LAD and diagonal going from 70% to 90% initial stenosis to 0% residual. TRANSINT:[id number] Voice Confirmation ID: [id number] DOCUMENT ID: [id number] STAN REGAN MD at 1642 CC: [id number] DICTATION DATE: 05/31/18 1044 DONOR FLOOR TECHNICIAN: 05/31/18 1233 DEP CLI 05/31/18 [facility] [address] [place] [address]
[~2018-05-31 08:00] MED LIST: BAYER CHEWABLE81 MG PO; CO Q-10200 MG PO; FISH OIL 1,2001 CAP PO; MOBIC7.5 MG PO; PLAVIX75 MG PO; PRAVACHOL80 MG PO; UROXATRAL10 MG PO; VITAMIN B COMPL1 TAB PO; VITAMIN C1000 MG PO
[2018-05-31 08:31] VITALS: BP 140/79; Ht 177.8 cm; Wt 86.4 kg
[2018-05-31 08:40] LABS: BASOPHILS 0.4 % (0-2); EOSINOPHILS 1.7 % (0-7); HEMATOCRIT 41.8 % (42.0-54.0); HEMOGLOBIN 14.9 g/dL (13.5-17.5); IMMATURE GRANULOCYTES 0.4 % (0-5); LYMPHOCYTES 21.6 % (15-50); MCH 33.4 pg (26.0-34.0); MCHC 35.6 g/dL (31.0-37.0); MCV 93.7 fL (80.0-100.0); MEAN PLATELET VOLUME 10.8 fL (7.4-10.4); MONOCYTES 7.8 % (2-11); NEUTROPHILS 68.1 % (40-80); PLATELET COUNT 153 10x3/uL (130-400); RBC 4.46 10x6/uL (4.20-6.10); RDW 11.9 % (11.5-14.5); WBC 9.2 10x3/uL (4.8-10.8)
[2018-05-31 09:00] LABS: ANION GAP 13.6 mmol/L (8-16); CALCIUM 9.2 mg/dL (8.5-10.1); CARBON DIOXIDE 27.4 mmol/L (21.0-32.0); CREATININE - SERUM 1.3 mg/dL (0.6-1.3)
== END 2018-05-31 14:55 ==
LOC: D.CATH 08:00
PROVIDERS: Internal Medicine Interventional Cardiology
DX: I25.10 Atherosclerotic heart disease of native coronary artery without angina pectoris (principal)
CPT/HCPCS: C9600; C9601